=== PATIENT | male | born 1945 | race Caucasian/White ===

== ENCOUNTER 2020-04-11 06:38 | Day surgery (SDC) | payer MEDICARE ==
[2020-04-07 12:43] VITALS: BMI 26.6
[2020-04-11] MEDS ORDERED: PROPOFOL 200 MG/20 ML VIAL ONE (09:19)
[2020-04-11] MEDS ORDERED: Ondansetron PF 4 MG/2 ML Vial ONE (09:19)
[2020-04-11] MEDS ORDERED: EPHEDRINE 25 MG/5 ML SYRINGE ONE (09:19)
[2020-04-11] MEDS ORDERED: Dexamethasone 20 MG/5 ML VIAL ONE (09:19)
[2020-04-11] MEDS ORDERED: Lidocaine 1% PF 5 ML VIAL ONE (09:19)
[2020-04-11] MEDS ORDERED: Bupivacaine HCl 0.5%/Epinephrine 1:200,000/PF 30 ml Vial ONE (10:34)
[2020-04-11] MEDS ORDERED: HYDROcodone/Acetaminophen 5/325 mg Tablet ONE (11:50)
--- NOTE | 2020-04-12 11:13 | OP ---
DATE OF PROCEDURE: 04/11/2020 PREOPERATIVE DIAGNOSES: 1. Left carpal tunnel syndrome. 2. Left cubital tunnel syndrome. POSTOPERATIVE DIAGNOSES: 1. Left carpal tunnel syndrome. 2. Left cubital tunnel syndrome. PROCEDURE PERFORMED: 1. Left carpal tunnel release. 2. Left cubital tunnel release. CAD DESIGNER DRAFTER: None. ANESTHESIA: Reagan Resendez MD. The patient received an LMA with 0.5% Marcaine with epi, 5 mL at the elbow, 5 mL at the wrist. ESTIMATED BLOOD LOSS: Less than 30 mL. TOURNIQUET TIME: 31 minutes. ANTIBIOTICS: Ancef. COMPLICATIONS: None. HISTORY OF PRESENT ILLNESS: Mr. Schneider is a 75-year-old male with carpal tunnel and cubital tunnel symptoms on exam as well as nerve conduction studies. I discussed with the patient risks and benefits of the releases to include pain, scar, bleeding, infection, damage to vital structures, decreased range of motion, continued pain despite surgical intervention, need for further surgeries, loss of life or limb. The patient understood the risks and benefits and elected to proceed. DESCRIPTION OF PROCEDURE: Time-out was performed designating the patient's left upper extremity as the operative site based on site, consents, and marking. Tourniquet was brought up and it was left for a total of 31 minutes and let down after completing my carpal tunnel before closure. Procedure #1: The patient had an incision in between the lateral epicondyle and olecranon down through skin. Scissors were used to dissect down to find the patient's ulnar nerve. We released Diamond fascia as well as the forearm fascia distally to completely release the nerve with both blunt dissection and scissors. Moved proximally to ensure that the ulnar nerve was released proximally, was freely mobile, had no adhesions, had no other sites of tether. I washed the wound, closed just the remnant of Diamond fascia to the subcu to help as a sling to keep it reduced, closed the subcu with 2-0 and 3-0 nylon. Procedure #2: Moved to the hand. I made an incision in line with the proximal Miller cardinal line in line with the flexor crease over the 4th ray down through skin. Bluntly dissected to the palmar fascia, using a knife, placing it to protect the nerve under the transverse carpal ligament to the fascia through the brevis down through the transverse carpal ligament. I used scissors proximally to release the entirety of it to ensure the nerve was completely released. I washed, ensured that there were no other signs of bleeding or injury. I let the tourniquet down, controlled the bleeding and closed with 3-0 nylon. I injected 5 mL at the elbow and 5 mL at the hand for pain control of Marcaine 0.25% with epi. Tourniquet was up for a total of 31 minutes. The patient will remain in a splint for 5 days, begin range of motion of elbow, wrist, and hand in 5 days with Velcro wrist to protect himself. He will follow up with me in clinic in about 2 weeks for followup. Job ID: [id number] [facility] CENTERIrasema
== END 2020-04-11 12:36 | disposition home or self-care (01) ==
LOC: SDC 06:38
PROVIDERS: ATTEND Orthopaedic Surgery
PROC: 01N40ZZ Release Ulnar Nerve, Open Approach (ICD-10-PCS; principal; 2020-04-11)
PROC: 01N50ZZ Release Median Nerve, Open Approach (ICD-10-PCS; 2020-04-11)
DX: G56.23 Lesion of ulnar nerve, bilateral upper limbs (principal); G56.03 Carpal tunnel syndrome, bilateral upper limbs; I11.9 Hypertensive heart disease without heart failure; Z87.891 Personal history of nicotine dependence; Z79.82 Long term (current) use of aspirin; Z79.84 Long term (current) use of oral hypoglycemic drugs; Z79.899 Other long term (current) drug therapy; Z95.1 Presence of aortocoronary bypass graft; Z95.5 Presence of coronary angioplasty implant and graft
CPT/HCPCS: J0670; J0690; J1100; J2405; J2704

== ENCOUNTER 2020-05-15 06:21 | Outpatient (CLI) | payer MEDICARE, OTHER ==
[2020-05-15 14:33] LABS: #Eosinphils 0.3 thou/uL (0.0-0.7); #Lymphocytes 1.5 thou/uL (1.20-3.40); #Monocytes 0.5 thou/uL (0.11-0.59); #Neutrophils 4.1 thou/uL (1.40-6.50); %Basophils 0.6 % (0.0-1.0); %Eosinophils 4.8 % (0.0-10.0); %Lymphocytes 22.9 % (21.0-51.0); %Monocytes 8.1 % (0.0-10.0); %Neutrophils 63.7 % (42.0-75.0); Hemoglobin 16.1 g/dL (14.0-18.0); Mean Corpuscular HGB CONC 34.4 g/dL (32.0-36.0); Mean Corpuscular Hemoglobin 31.3 pg (27.0-31.0); Mean Corpuscular Volume 91.1 fL (78.0-98.0); Mean Platelet Volume 8.4 fL (7.4-10.4); Platelet Count 127 thou/uL (130-400); RBC Distribution Width 12.2 % (11.5-14.5); Red Blood Cell (RBC) Count 5.13 mill/uL (4.70-6.10); White Blood Cell (WBC) Count 6.5 thou/uL (4.8-10.8)
[2020-05-16 11:34] LABS: SARS-CoV-2 MS2 Positive; SARS-CoV-2 N Gene Negative; SARS-CoV-2 S Gene Negative; SARS-CoV-2 by NAA Not Detected (NotDetected); SARS-CoV-2 orf1ab Negative
== END 2020-05-15 06:22 | disposition home or self-care (01) ==
LOC: LABBT 06:21
PROVIDERS: ATTEND Orthopaedic Surgery
DX: Z01.812 Encounter for preprocedural laboratory examination (principal); G56.01 Carpal tunnel syndrome, right upper limb; Z20.828 Contact with and (suspected) exposure to other viral communicable diseases
CPT/HCPCS: 85025; U0003; 87635

== ENCOUNTER 2020-05-18 07:04 | Day surgery (SDC) | payer MEDICARE ==
[2020-05-17 12:08] VITALS: BMI 26.6
[2020-05-18] MEDS ORDERED: Lidocaine 1% w/Epinephrine 1:100K 20 ML VIAL ONE (09:04)
[2020-05-18] MEDS ORDERED: PROPOFOL 20 ML ONE (10:03)
--- NOTE | 2020-05-21 08:39 | OP ---
DATE OF PROCEDURE: 05/18/2020 PREOPERATIVE DIAGNOSIS: Right carpal tunnel syndrome. POSTOPERATIVE DIAGNOSIS: Right carpal tunnel syndrome. PROCEDURE PERFORMED: Right open carpal tunnel release. ANESTHESIA: Dr. Wiseman. The patient received a TIVA with 8 mL of 1% lidocaine with epinephrine. ESTIMATED BLOOD LOSS: Less than 10 mL. TOURNIQUET TIME: 5 minutes. ANTIBIOTICS: Ancef 2 g. COMPLICATIONS: None. HISTORY OF PRESENT ILLNESS: Mr. Schneider is a 75-year-old male with right carpal tunnel syndrome, recently underwent a left release. I discussed with him the risks and benefits of right carpal tunnel release to include pain, scar, bleeding, infection, damage to vital structures including nerves, decreased range of motion and strength, continued pain despite surgical intervention. The patient understood the risks and benefits of the procedure and elected to proceed. DESCRIPTION OF PROCEDURE: Time-out was performed designating the patient's right upper extremity as the operative site based on site, consent, and markings. After time-out, the patient's right upper extremity was prepped and draped in sterile fashion. Tourniquet was brought up and was left up for a total of 5 minutes. I made a wheal wrist injection as well as a wheal in line with the incision, about 2 mL lidocaine. I dissected down through the skin, through the fat to the palmar fascia. I used hemostats to spread and split and come down to the palmar fascia to expose the transverse carpal ligament as well as the palmaris brevis. I placed hemostat underneath and protected the nerve, sharply dissected down with scissors proximally and ensured it was completely released. I washed, let tourniquet down at 5 minutes, controlled bleeding. I closed the skin with 4-0 nylon horizontal mattress and simple sutures. I injected 6 mL of lidocaine with epi postprocedure. The patient was placed in a soft tissue dressing. He can follow up with me in about 10 to 12 days for suture removal. Job ID: [id number] [facility]
== END 2020-05-18 11:30 | disposition home or self-care (01) ==
LOC: SDC 07:04
PROVIDERS: ATTEND Orthopaedic Surgery
PROC: 01N50ZZ Release Median Nerve, Open Approach (ICD-10-PCS; principal; 2020-05-18)
DX: G56.01 Carpal tunnel syndrome, right upper limb (principal); I11.9 Hypertensive heart disease without heart failure; Z87.891 Personal history of nicotine dependence; Z79.82 Long term (current) use of aspirin; Z79.84 Long term (current) use of oral hypoglycemic drugs; Z79.899 Other long term (current) drug therapy; Z95.1 Presence of aortocoronary bypass graft; Z95.5 Presence of coronary angioplasty implant and graft
CPT/HCPCS: J0690; J2704